=== PATIENT | female | born 1995 | race Caucasian/White ===

== ENCOUNTER 2016-08-25 15:17 | Emergency (ER) | payer OTHER ==
[~2016-08-25] VITALS: Ht 172.7 cm; Wt 62.6 kg
[2016-08-25] MEDS ORDERED: FAMOTIDINE 20MG/2ML IV (PEPCID) ONE ×2 (15:19→15:20)
[2016-08-25] MEDS ORDERED: EPINEPHrine INJECTION 1 MG/ML AMP ONE (15:19)
[2016-08-25] MEDS ORDERED: diphenhydrAMINE 50 MG/ML INJ (BENADRYL) ONE (15:19)
[2016-08-25] MEDS ORDERED: methylPREDNISolone 125 MG (Solu-MEDROL) VIAL ONE (15:19)
[2016-08-25] MEDS ORDERED: diphenhydrAMINE 50 MG/ML INJ (BENADRYL) IVP ONE (15:30)
[2016-08-25] MEDS ORDERED: methylPREDNISolone 125 MG (Solu-MEDROL) VIAL IVP ONE (15:30)
[2016-08-25] MEDS ORDERED: FAMOTIDINE 20MG/2ML IV (PEPCID) IVP ONE (15:30)
[2016-08-25] MEDS ORDERED: NS IV 1000 ML 1,000 ML IV ONE (15:32)
--- NOTE | 2016-08-25 15:35 | ED General ---
General Chief Complaint: Allergic Reaction Stated Complaint: ALLERGIC RXN Source of Information: Patient History of Present Illness Time Seen by Provider: 15:20 Initial Comments PT ARRIVES VIA POV PT STATES SHE IS HAVING AN ALLERGIC REACTION TO SOMETHING SHE ATE PT HAS KNOWN ALLERGIES TO MILK, EGGS, SEAFOOD, NUTS, WELL PENICILLIN PT ATE A FROZEN DINNER/QUINOA BOWL AT 1430, AND SYMPTOMS BEGAN AT 1440 C/O SEVERE RASH/HIVES, ITCHING ALL OVER BODY THROAT / TONGUE FELT LIKE IT WAS STARTING TO SWELL, BUT NOT NOW HAD CHEST TIGHTNESS, SHORTNESS OF BREATH, AND FELT LIKE SHE WAS WHEEZING ON ARRIVAL, PT FEELS LIKE SHE IS GOING TO PASS OUT PT HAS HAD SEVERE ALLERGIC REACTIONS TO FOODS IN THE PAST, AND HAS 2 EPIPENS BUT DID NOT USE THEM PT TOOK 6-- 5 MG PREDNISONE, AND BENADRYL 50 MG AT 1455 PSU STUDENT Allergies and Home Medications Allergies Coded Allergies: milk (Verified Allergy, Severe, 12/14/14) Penicillins (Verified Allergy, Mild, 12/14/14) Home Medications Epinephrine 0.3 Mg/0.3 Ml Auto.injct 0.3 MG IJ (Reported) Prednisone 10 Mg Tab 10 MG PO (Reported) Constitutional: see HPI dizziness malaise weakness EENTM: see HPI Respiratory: see HPI Cardiovascular: see HPI Gastrointestinal: no symptoms reported Genitourinary: no symptoms reported : No LMP: Aug 18, 2016 (NO CONTROL) Musculoskeletal: no symptoms reported Skin: see HPI Psychiatric/Neurological: No Symptoms Reported Hematologic/Lymphatic: No Symptoms Reported Immunological/Allergic: see HPI food allergy Past Mnuksgt-Zdpkyw-Dmxcpa Hx Patient Social History Alcohol Use: Rarely Uses Recreational Drug Use: No Smoking Status: Never a Smoker Recent Hopitalizations: No Seasonal Allergies Seasonal Allergies: Yes (ENVIRONMENTAL AND FOOD ALLERGIES) Surgeries HX Surgeries: No Respiratory Hx Respiratory Disorders: Yes Respiratory Disorders: Asthma Cardiovascular Hx Cardiac Disorders: No Neurological Hx Neurological Disorders: No Reproductive System : No Hx Reproductive Disorders: No Female Reproductive Disorders: Denies Genitourinary Hx Genitourinary Disorders: No Gastrointestinal Hx Gastrointestinal Disorders: No Musculoskeletal Hx Musculoskeletal Disorders: No Endocrine Hx Endocrine Disorders: No HEENT HX ENT Disorders: No Cancer Hx Cancer: No Psychosocial Hx Psychiatric Problems: No Integumentary HX Skin/Integumentary Disorder: Yes (HIVES/SEVERE ALLERGIC REACTIONS) Blood Transfusions Hx Blood Disorders: No Adverse Reaction to a Blood Tr: No Physical Exam Vital Signs Vital Sign - Last 12Hours 08/25/16 15:27 Temp 98.3 Pulse 132 Resp 18 B/P 104/44 Pulse Ox 98 O2 Delivery Room Air Capillary Refill : General Appearance: Anxious Thin Other (HYPERVENTILATING) HEENT: PERRL/EOMI Normal ENT Inspection Pharynx Normal Other (NO SWELLING OF LIPS, TONGUE OR UVULA) Neck: Full Range of Motion Normal Inspection Non Tender Supple Respiratory: Normal Breath SoundsNo Stridor, No Wheezing, Other ( HYPERVENTILATING. FULL AERATION. ) Cardiovascular: No Edema No Murmur Normal Peripheral Pulses Tachycardia Gastrointestinal: Non Tender Soft Back: Normal Inspection Extremity: Normal Capillary Refill Normal Inspection No Pedal Edema Neurologic/Psychiatric: Alert Oriented x3 No Motor/Sensory Deficits front office spec II- XII Norm as Tested Other (ANXIOUS) Skin: Warm/Dry Rash (DIFFUSE ERYTHEMA AND HIVES TO ENTIRE BODY) Progress/Results/Core Measures Results/Orders My Orders Orders-CHRISSY ONEILL DO Saline Lock/Iv-Start (08/25/16 15:20) Monitor-Rhythm Ecg Trace Only (08/25/16 15:20) Diphenhydramine Injection (Benadryl Inje (08/25/16 15:30) Methylprednisolone Sod Succ (Solu-Medrol (08/25/16 15:30) Famotidine Injection (Pepcid Injection) (08/25/16 15:30) Epinephrine 1 Mg Injection (Adrenalin I (08/25/16 15:45) Saline Lock/Iv-Start (08/25/16 15:32) Ns Iv 1000 Ml (Sodium Chloride 0.9%) (08/25/16 15:32) Diphenhydramine Injection (Benadryl Inje (08/25/16 15:19) Methylprednisolone Sod Succ (Solu-Medrol (08/25/16 15:19) Famotidine Injection (Pepcid Injection) (08/25/16 15:19) Epinephrine 1 Mg Injection (Adrenalin I (08/25/16 15:19) Famotidine Injection (Pepcid Injection) (08/25/16 15:20) Medications Given in ED Vital Signs/I&O Progress Note : Progress Note SYMPTOMS COMPLETELY RESOLVED PRIOR TO DISMISSAL. PT COMFORTABLE GOING HOME PT STATES SHE HAS PREDNISONE AT HOME, WELL BENADRYL AND EPIPEN--PT ADVISED TO USE ALL 3 AND COME TO ER IF SYMPTOMS RETURN. Departure Impression Impression: Primary Impression: Allergic reaction to food Disposition: HOME, SELF-CARE Condition: Improved Departure-Patient Inst. Referrals: NO,LOCAL PHYSICIAN (PCP) Primary Care Physician BARI MENARD MD Patient Instructions: Food Allergy Add. Discharge Instructions: LOTS OF WATER AVOID ANY NEW FOODS OR DRINKS IF SYMPTOMS RETURN, USE YOUR EPI PEN, TAKE BENADRYL 50 MG AND IMMEDIATELY RETURN TO ER All discharge instructions reviewed with patient and/or family. Voiced understanding. CHRISSY ONEILL DO Aug 25, 2016 15:35 O2 Delivery Room Air Departure Impression Impression: Primary Impression: Allergic reaction to food Disposition: HOME, SELF-CARE Condition: Improved Departure-Patient Inst. Referrals: NO,LOCAL PHYSICIAN (PCP) Primary Care Physician BARI MENARD MD Patient Instructions: Food Allergy Add. Discharge Instructions: LOTS OF WATER AVOID ANY NEW FOODS OR DRINKS IF SYMPTOMS RETURN, USE YOUR EPI PEN, TAKE BENADRYL 50 MG AND IMMEDIATELY RETURN TO ER All discharge instructions reviewed with patient and/or family. Voiced understanding. CHRISSY ONEILL DO Aug 25, 2016 15:35
[2016-08-25] MEDS ORDERED: PRD10T PO (15:36)
[2016-08-25] MEDS ORDERED: EPIN0.3P3 IJ (15:36)
[2016-08-25] MEDS ORDERED: EPINEPHrine INJECTION 1 MG/ML AMP SC ONE (15:45)
[2016-08-25 17:17] VITALS: BP 119/65
== END 2016-08-25 17:17 | disposition home or self-care (01) ==
LOC: EDUNIT# 15:17 → ER 15:18
DX: L50.0 Allergic urticaria (principal); R06.02 Shortness of breath; R07.89 Other chest pain; T78.1XXA Other adverse food reactions, not elsewhere classified, initial encounter
CPT/HCPCS: 93041; 96372; 96374; 96375

== ENCOUNTER 2022-02-20 13:09 | Emergency (ER) | payer OTHER ==
[~2022-02-20] VITALS: Ht 172.7 cm; Wt 63.5 kg
[2022-02-20 13:09] VITALS: BP 76/44
[~2022-02-20 13:09] MED LIST: EPIN0.3P3 IJ; PRD10T PO
[2022-02-20 13:31] LABS: BASOPHILS % (AUTO) 0 % (0-10); EOSINOPHILS % (AUTO) 0 % (0-10); HEMATOCRIT 43 % (35-52); HEMOGLOBIN 14.8 g/dL (11.5-16.0); LYMPHOCYTES # (AUTO) 2.7 10^3/uL (1.0-4.0); LYMPHOCYTES % (AUTO) 55 % (12-44); MEAN CORPUSCULAR HEMOGLOBIN 31 pg (25-34); MEAN CORPUSCULAR HGB CONC 34 g/dL (32-36); MEAN CORPUSCULAR VOLUME 91 fL (80-99); MEAN PLATELET VOLUME 10.7 fL (9.0-12.2); MONOCYTES # (AUTO) 0.2 10^3/uL (0.0-1.0); MONOCYTES % (AUTO) 3 % (0-12); NEUTROPHILS # (AUTO) 2.1 10^3/uL (1.8-7.8); NEUTROPHILS % (AUTO) 42 % (42-75); PLATELET COUNT 255 10^3/uL (130-400); WHITE BLOOD COUNT 4.9 10^3/uL (4.3-11.0)
[2022-02-20] MEDS ORDERED: diphenhydrAMINE 50 MG/ML INJ (BENADRYL) ONE (13:33)
[2022-02-20] MEDS ORDERED: methylPREDNISolone 125 MG (Solu-MEDROL) VIAL ONE (13:33)
[2022-02-20] MEDS ORDERED: FAMOTIDINE 20MG/2ML IV (PEPCID) ONE (13:37)
--- NOTE | 2022-02-20 13:42 | ED General ---
General Chief Complaint: Allergic Reaction Stated Complaint: ALLERGIC REACTION Nursing Triage Note: PT AMBULATE TO ROOM 07 WITH C/O ALLERGIC REACTION TO MILK. PT STATES SHE DRANK A PROTEIN SHAKE THAT WAS SUPPOSED TO BE PLANT BASED BUT HAD DAIRY IN IT. 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 PT WEAK WITH DIFFICULTY WALKING AND BREATHING UPON ARRIVAL. Source of Information: Patient, Family Exam Limitations: Physical Impairments History of Present Illness Date Seen by Provider: Feb 20, 2022 Time Seen by Provider: 13:13 Initial Comments Patient is a 26yo female with a history of multiple food allergies, presents with her sig other cc allergic reaction/anaphylaxis. She was at [facility] and th ought she had a plant based protein shake, drank the whole thing and immediately felt like it didnt taste right. She has had anaphylaxis before - she vomited. Took 6 prednisone tablets and 50mg of benadryl and used her epi pen. Within about 30 minutes she had her boufriend bring her to the ED. She complained of "throat swelling" and feeling SOB. Profusely diaphoretic. Very erythemaous all over. On initial assessment awake and able to converse - in significant distress however. radial pulses not palpable. INitial BP 53 systolic. RA O2 sats low 90's. HR in the 50's. 2 IVs established and routine allergy cocktail administered - 20mg pepcid, 50mg benadryl and 125mg solumedrol - followed shortly by 0.3mg epi IM. It took several minutes for the patient to show a response in HR and BP - HR climbed to 70's and then 90's. BP steadily increased and she started to feel better. Did get nauseated one more time during this. 2L NS administered. No other ingestions reported. no recent illnesses. Timing/Duration: 1/2 Hour Severity: Severe Associated Systoms: Nausea/Vomiting, Shortness of Air, Other (rash) Allergies and Home Medications Allergies Coded Allergies: milk (Verified Allergy, Severe, 12/14/14) Penicillins (Verified Allergy, Mild, 12/14/14) Patient Home Medication List Home Medication List Reviewed: Yes Epinephrine (Epipen 2-Rajendra) 0.3 Mg/0.3 Ml Auto.injct, 0.3 MG IJ, (Reported) Entered as Reported by: FLACA ROMERO on 08/25/16 1536 Prednisone (Prednisone) 10 Mg Tab, 10 MG PO, (Reported) Entered as Reported by: FLACA ROMERO on 08/25/16 1536 Review of Systems Review of Systems Constitutional: see HPI EENTM: throat swelling Respiratory: short of breath Cardiovascular: no symptoms reported Gastrointestinal: nausea Genitourinary: no symptoms reported Musculoskeletal: no symptoms reported Skin: change in color, rash Psychiatric/Neurological: Anxiety All Other Systems Reviewed Negative Unless Noted: Yes Past Lidacym-Cbotbu-Sstmjp Hx Patient Social History Tobacco Use?: No Smoking Status: Never a Smoker Smokeless Tobacco Frequency: Never a User Use of E-Cig and/or Vaping dev: No Use of E-Cig and/or Vaping Stanislaw: Never a User Substance use?: No Alcohol Use?: No Pt feels they are or have been: No Seasonal Allergies Seasonal Allergies: Yes (ENVIRONMENTAL AND FOOD ALLERGIES) Past Medical History Asthma Reproductive Disorders: No Female Reproductive Disorders: Denies Adverse Reaction/Blood Tranf: No Physical Exam Vital Signs Vital Signs - First Documented 02/20/22 13:09 Temp 36.5 Pulse 94 Resp 24 B/P (MAP) 76/44 (55) Pulse Ox 97 O2 Delivery OxyMask O2 Flow Rate 15.00 Capillary Refill : Less Than 3 Seconds Height, Weight, BMI Height: 5'8" Weight: 138lbs. oz. 62.991424gp; 21.00 BMI Method:Stated General Appearance: WD/WN, Anxious, Mild Distress Eyes: Bilateral Eye Normal Inspection, Bilateral Eye PERRL, Bilateral Eye EOMI HEENT: PERRL/EOMI, Pharynx Normal, Moist Mucous Membranes Neck: Normal Inspection Respiratory: Lungs Clear, Normal Breath Sounds, No Accessory Muscle Use, No Respiratory Distress Cardiovascular: Regular Rate, Rhythm, Other (unable to palpate ridaial pulses bilaterally) Gastrointestinal: Non Tender, Soft Extremity: Normal Inspection Neurologic/Psychiatric: Alert, Oriented x3, No Motor/Sensory Deficits, Other (anxious) Skin: Diaphoresis, Rash (diffuse erythema) Progress/Results/Core Measures Suspected Sepsis SIRS Temperature: Pulse: 94 Respiratory Rate: 24 Laboratory Tests 02/20/22 13:22: White Blood Count 4.9 Blood Pressure 76 /44 Mean: 55 Laboratory Tests 02/20/22 13:22: Creatinine 1.02, Platelet Count 255 Results/Orders Lab Results Laboratory Tests Test 02/20/22 13:22 Range/Units White Blood Count 4.9 4.3-11.0 10^3/uL Red Blood Count 4.76 3.80-5.11 10^6/uL Hemoglobin 14.8 11.5-16.0 g/dL Hematocrit 43 35-52 % Mean Corpuscular Volume 91 80-99 fL Mean Corpuscular Hemoglobin 31 25-34 pg Mean Corpuscular Hemoglobin Concent 34 32-36 g/dL Red Cell Distribution Width 12.3 10.0-14.5 % Platelet Count 255 130-400 10^3/uL Mean Platelet Volume 10.7 9.0-12.2 fL Immature Granulocyte % (Auto) 0 % Neutrophils (%) (Auto) 42 42-75 % Lymphocytes (%) (Auto) 55 H 12-44 % Monocytes (%) (Auto) 3 0-12 % Eosinophils (%) (Auto) 0 0-10 % Basophils (%) (Auto) 0 0-10 % Neutrophils # (Auto) 2.1 1.8-7.8 10^3/uL Lymphocytes # (Auto) 2.7 1.0-4.0 10^3/uL Monocytes # (Auto) 0.2 0.0-1.0 10^3/uL Eosinophils # (Auto) 0.0 0.0-0.3 10^3/uL Basophils # (Auto) 0.0 0.0-0.1 10^3/uL Immature Granulocyte # (Auto) 0.0 0.0-0.1 10^3/uL Sodium Level 142 135-145 MMOL/L Potassium Level 3.9 3.6-5.0 MMOL/L Chloride Level 109 H 98-107 MMOL/L Carbon Dioxide Level 16 L 21-32 MMOL/L Anion Gap 17 H 5-14 MMOL/L Blood Urea Nitrogen 19 H 7-18 MG/DL Creatinine 1.02 0.60-1.30 MG/DL Estimat Glomerular Filtration Rate 77 BUN/Creatinine Ratio 19 Glucose Level 125 H 70-105 MG/DL Calcium Level 9.5 8.5-10.1 MG/DL Serum Test, Qualitative NEGATIVE NEGATIVE My Orders Orders - LEEANN NEGRETE MD Diphenhydramine Injection (Benadryl Inje (02/20/22 13:33) Methylprednisolone Sod Succ (Solu-Medrol (02/20/22 13:33) Famotidine Injection (Pepcid Injection) (02/20/22 13:37) Albuterol Pre-Mix Nebs (Rt) (Proventil (02/20/22 14:00) Svn Small Volume Nebulizer (02/20/22 13:49) Albuterol Pre-Mix Nebs (Rt) (Proventil (02/20/22 14:04) Diphenhydramine Injection (Benadryl Inje (02/20/22 16:45) Medications Given in ED Vital Signs/I&O 02/20/22 02/20/22 13:09 13:09 Temp 36.5 Pulse 94 Resp 24 B/P (MAP) 76/44 (55) Pulse Ox 97 O2 Delivery OxyMask OxyMask O2 Flow Rate 15.00 Capillary Refill : Less Than 3 Seconds Blood Pressure Mean: 55 Point of Care Testing Finger Stick Blood Glucose: 141 Blood Glucose Action Taken: PROVIDER NOTIFIED Progress Note #1: Time: 13:40 Progress Note upon initial assessment patient in moderste distress, nauseated, SOB; diffuse erythema - findings 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 She had immediate IV access and fluids started, 0.3mg epi IM with improvement of HR from 50's to upper 90's and BP from 53 systolic to 70's and then 110 systolic. Still nauseated and SOB. 2L NS infusing and benadryl, solumedrol and pepcid administered. Steady improvement in mentation and BP holding. Monitored closely. Progress Note #2: Time: 16:42 Progress Note Patient has had multiple re-evaluations and been pretty stable. ELIZABETH Ponce just advised she is "getting red" again. She feels like her throat is scratchy and tongue maybe a little thick again. VSS - HR 101. BP - normal. Sats 99% on RA. SHe is diffusely erythematous again. No increased work of breathing/distress. Smiling and interactive. 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 we can give her another dose of benadryl - no indication for epi. Will continue to monitor. I did advise her I am considering admission observation. This is not necessarily a biphasic anaphylaxis - but I am quite concerned that she may decline at home and require re-admission. Critical Care Note Critical Care Start Time: 13:13 Stop Time: 17:30 Total Time (minutes) 90 minutes critical care time in the initial evaluation, management and on going monitoring of this patient with acute Anaphylaxis. Time includes initial eval and resuscitation with IVF, medications/IM epi, supplemental oxygenation and monitoring. Serial re-evaluations and additional medications. Discussion with Hospitalist and review of medical record. Departure Communication (Admissions) Time/Spoke to Admitting Phy: 17:[address] Roberto - ICU overnight. Impression Primary Impression: Anaphylaxis Qualified Codes: T78.2XXA - Anaphylactic shock, unspecified, initial encounter Disposition: ADMITTED INPATIENT Condition: Stable Admissions Decision to Admit Reason: Admit from ER (General) Decision to Admit/Date: Feb 20, 2022 Time/Decision to Admit Time: 17:28 Departure-Patient Inst. Referrals: NO,LOCAL PHYSICIAN (PCP/Family) Primary Care Physician LEEANN NEGRETE MD Feb 20, 2022 13:42
[2022-02-20 13:53] LABS: POTASSIUM 3.9 MMOL/L (3.6-5.0)
[2022-02-20 13:54] LABS: CALCIUM 9.5 MG/DL (8.5-10.1)
[2022-02-20 13:58] LABS: CREATININE SERUM 1.02 MG/DL (0.60-1.30)
[2022-02-20] MEDS ORDERED: RT-ALBUTEROL SULF 2.5 MG/3 ML PRE-MIX VIAL INH ONE (14:00)
[2022-02-20] MEDS ORDERED: RT-ALBUTEROL SULF 2.5 MG/3 ML PRE-MIX VIAL ONE (14:04)
[2022-02-20] MEDS ORDERED: diphenhydrAMINE 50 MG/ML INJ (BENADRYL) IVP ONE (16:45)
== END 2022-02-20 19:54 | disposition left against medical advice (07) ==
LOC: EDUNIT# 13:09 → ER 13:12 → UNDOADMOB 17:24 → ICU 17:24
DX: T78.09XA Anaphylactic reaction due to other food products, initial encounter (principal)
CPT/HCPCS: 36415; 80048; 84703; 85025